=== PATIENT | female | born 1980 | race Caucasian/White ===

== ENCOUNTER 2016-12-09 17:23 | Emergency (ER) | payer OTHER ==
[2016-12-09 18:16] VITALS: BP 109/64
--- NOTE | 2016-12-09 18:20 | UC ---
FLU HPI - HPI Summary HPI Summary: day 2 of fevers, chills, body aches, fatigue and cough - History of Current Complaint Chief Complaint: UCRespiratory Stated Complaint: CHEST CONGESTION Time Seen by Provider: 12/09/16 18:19 Hx Obtained From: Patient Hx Last Menstrual Period: 11/27/16 ?: No Onset/Duration: Sudden Onset, Lasting Days - 2, Still Present Severity Currently: Moderate Severity Initially: Moderate Pain Intensity: 8 Pain Scale Used: 0-10 Numeric Associated Signs & Symptoms: Positive: Fever, Myalgia, Cough, Headache Related Hx: Possible Flu/Infectious Exposure - Allergy/Home Medications Allergies/Adverse Reactions: Allergies Allergy/AdvReac Type Severity Reaction Status Date / Time Penicillins Allergy Intermediate Rash Verified 04/26/16 16:27 Home Medications: Home Medications [id number] [Excedrin Extra Strength 250-250-65 mg] 1 tab PO 12/09/16 [History] PMH/Surg Hx/FS Hx/Imm Hx Previously Healthy: No - IGIUGIG Endocrine History Of: Denies: Diabetes, Thyroid Disease Cardiovascular History Of: Reports: 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 Respiratory History Of: Reports: Asthma - Surgical History Surgical History: Yes Surgery Procedure, Year, and Place: open heart surgery as (VSD REPAIR) - Family History Known Family History: Positive: None Family History: no cardiovascular issues reported in family - Social History Occupation: Employed Full-time Lives: With Family Alcohol Use: None Substance Use Type: None Smoking Status (MU): Light Every Day Tobacco Smoker Type: Cigarettes Amount Used/How Often: less than 1/2 pack day Length of Time of Smoking/Using Tobacco: 18 Years Have You Smoked in the Last Year: Yes Household Exposure Type: Cigarettes Cessation Counseling: Patient Advised to Stop - Immunization History Most Recent Influenza Vaccination: fall 2012 Most Recent Tetanus Shot: [facility] offering [facility] Most Recent Pneumonia Vaccination: never Review of Systems Constitutional: Fever, Chills, Fatigue Skin: Negative Eyes: Negative ENT: Negative Respiratory: Cough Cardiovascular: Negative Gastrointestinal: Negative Genitourinary: Negative Motor: Negative Neurovascular: Negative Musculoskeletal: Arthralgia, Myalgia Neurological: Headache Psychological: Negative All Other Systems Reviewed And Are Negative: Yes Physical Exam Triage Information Reviewed: Yes Appearance: Well-Nourished, Ill-Appearing - moderate, Pain Distress - moderate Vital Signs: Initial Vital Signs Temp 101.1 F 12/09/16 18:13 Pulse 93 12/09/16 18:13 Resp 18 12/09/16 18:13 BP 109/64 12/09/16 18:13 Pulse Ox 99 12/09/16 18:13 Vital Signs Reviewed: Yes Eye Exam: Normal Eyes: Positive: Conjunctiva Clear ENT Exam: Normal ENT: Positive: Normal ENT inspection, Hearing grossly normal, Pharynx normal, TMs normal. Negative: Nasal congestion, Nasal drainage, Tonsillar swelling, Tonsillar exudate, Trismus, Muffled/hoarse voice Dental Exam: Normal Neck exam: Normal Neck: Positive: Supple, Nontender, No Lymphadenopathy Respiratory Exam: Normal Respiratory: Positive: Chest non-tender, Lungs clear, Normal breath sounds, No respiratory distress, No accessory muscle use Cardiovascular Exam: Normal Cardiovascular: Positive: RRR, No Murmur, Pulses Normal, Brisk Capillary Refill Abdominal Exam: Normal Abdomen Description: Positive: Nontender, No Organomegaly, Soft Bowel Sounds: Positive: Present Musculoskeletal Exam: Normal Musculoskeletal: Positive: Strength Intact, ROM Intact, No Edema Neurological Exam: Normal Neurological: Positive: Alert, Muscle Tone Normal Psychological Exam: Normal Psychological: Positive: Normal Response To Family Skin Exam: Normal Diagnostics - Laboratory Diagnostic Studies Completed/Ordered: Influenza A (+) Flu Course/Dx - Course Course Of Treatment: tamiflu, rest, tylenol, ibuprofen, increase fluids, follow with pcp - Differential Dx/Diagnosis Differential Diagnosis/HQI/PQRI: Influenza, Pneumonia, Upper Respiratory Infection Provider Diagnoses: Influenza A Discharge - Discharge Plan Condition: Stable Disposition: HOME Prescriptions: Oseltamivir CAP* [Tamiflu CAP*] 75 mg PO BID #10 cap Patient Education Materials: Albuterol (By breathing), How to Use a Metered- Dose Inhaler (ED), Influenza (ED), Wheezing (ED) Forms: *Work Release Referrals: Idalia Cai MD [Primary Care Provider] - 3 Days
[2016-12-09] MEDS ORDERED: Ibuprofen TAB* 600 MG PO ONE (18:40)
== END 2016-12-09 19:04 | disposition home or self-care (01) ==
LOC: UCEAST 17:23
DX: J10.1 Influenza due to other identified influenza virus with other respiratory manifestations (principal); Z88.0 Allergy status to penicillin; F17.210 Nicotine dependence, cigarettes, uncomplicated
CPT/HCPCS: 87502; 99212; A9270-GY; G0463

== ENCOUNTER 2017-03-16 07:50 | Emergency (ER) | payer MEDICAID ==
[2017-03-16 08:09] VITALS: BP 107/64
[2017-03-16] MEDS ORDERED: Polymyx/Trimethoprim OPTH* 10 ML BTL RIGHT EYE ONE (08:35)
--- NOTE | 2017-03-16 08:36 | UC ---
Eye Complaint HPI - HPI Summary HPI Summary: right upper eye lid swollen and tender began this morning - History of Current Complaint Chief Complaint: UCEye Stated Complaint: EYE ISSUE Time Seen by Provider: 03/16/17 08:30 Hx Obtained From: Patient Hx Last Menstrual Period: 03/13/17 ?: No Onset/Duration: Sudden Onset, Lasting Hours - 2, Still Present Timing: Constant Severity Initially: Mild Severity Currently: Mild Pain Intensity: 2 Pain Scale Used: 0-10 Numeric Location of Injury: Eye Lid (upper) Aggravating Factor(s): Nothing Alleviating Factor(s): Nothing Associated Signs And Symptoms: Positive: Negative Related History: Similar Episode - Allergies/Home Medications Allergies/Adverse Reactions: Allergies Allergy/AdvReac Type Severity Reaction Status Date / Time Penicillins Allergy Intermediate Rash Verified 04/26/16 16:27 PMH/Surg Hx/FS Hx/Imm Hx Previously Healthy: No Endocrine History Of: Denies: Diabetes, Thyroid Disease Cardiovascular History Of: Reports: 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 Respiratory History Of: Reports: Asthma - Surgical History Surgical History: Yes Surgery Procedure, Year, and Place: 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) - Family History Known Family History: Positive: None Family History: no cardiovascular issues reported in family - Social History Occupation: Employed Full-time Lives: With Family Alcohol Use: Rare Substance Use Type: None Smoking Status (MU): Light Every Day Tobacco Smoker Type: Cigarettes Amount Used/How Often: less than 1/2 pack day Length of Time of Smoking/Using Tobacco: 18 Years Have You Smoked in the Last Year: Yes Household Exposure Type: Cigarettes - Immunization History Most Recent Influenza Vaccination: fall 2012 Most Recent Tetanus Shot: [facility] offering [facility] Most Recent Pneumonia Vaccination: never Review of Systems Constitutional: Negative Skin: Negative Eyes: Negative - lid swollen and tender, Other ENT: Negative Respiratory: Negative Cardiovascular: Negative Gastrointestinal: Negative Genitourinary: Negative Motor: Negative Neurovascular: Negative Musculoskeletal: Negative Neurological: Negative Psychological: Negative All Other Systems Reviewed And Are Negative: Yes Physical Exam Triage Information Reviewed: Yes Appearance: Well-Appearing, No Pain Distress, Well-Nourished Vital Signs: Initial Vital Signs Temp 97.6 F 03/16/17 07:52 Pulse 64 03/16/17 07:52 Resp 18 03/16/17 07:52 BP 107/64 03/16/17 07:52 Pulse Ox 100 03/16/17 07:52 Vital Signs Reviewed: Yes Eye Exam: Normal Eyes: Positive: Conjunctiva Clear ENT Exam: Normal ENT: Positive: Normal ENT inspection, Hearing grossly normal, Pharynx normal, TMs normal. Negative: Nasal congestion, Nasal drainage, Tonsillar swelling, Tonsillar exudate, Trismus, Muffled/hoarse voice Dental Exam: Normal Neck exam: Normal Neck: Positive: Supple, Nontender, No Lymphadenopathy Respiratory Exam: Normal Respiratory: Positive: Chest non-tender, No respiratory distress, No accessory muscle use Cardiovascular Exam: Normal Cardiovascular: Positive: RRR, Pulses Normal, Brisk Capillary Refill Abdominal Exam: Normal Musculoskeletal Exam: Normal Musculoskeletal: Positive: Strength Intact, ROM Intact, No Edema Neurological Exam: Normal Neurological: Positive: Alert, Muscle Tone Normal Psychological Exam: Normal Skin Exam: Normal Eye Complaint Course/Dx - Course Course Of Treatment: warm compress, polytrim drops, follow with pcp prn - Differential Dx/Diagnosis Differential Diagnosis/HQI/PQRI: Conjunctivitis, Periorbital Cellulitis, Orbital Cellulitis Provider Diagnoses: OD Stye Discharge - Discharge Plan Condition: Stable Disposition: HOME Patient Education Materials: Stye (ED), Warm Compress or Soak (ED) Referrals: Andria Powell MD [Medical Doctor] - If Needed
== END 2017-03-16 09:03 | disposition home or self-care (01) ==
LOC: UCEAST 07:50
DX: H00.011 Hordeolum externum right upper eyelid (principal); F17.210 Nicotine dependence, cigarettes, uncomplicated
CPT/HCPCS: 99212; G0463

== ENCOUNTER 2017-03-30 12:25 | Emergency (ER) | payer MEDICAID ==
--- NOTE | 2017-03-30 12:35 | UC ---
Back Pain HPI - HPI Summary HPI Summary: The patient comes in today for: 1. Lower back pain: Onset: 2 days ago. Palliative/provocative: Ibuprofen helps. Movement makes it worse. Quality: Pressure. Region: Lower back Severity: 5/10 Time: Constant Associated symptoms: Event: She moved some furniture Monday after work. Previous treatment: Advil/ibuprofen recently, and hydrocodone in the past. Previous problem: She states that she has a history of lower back pain for about 2 years. Infections/fever: None. Cancers/unexpected weight loss: None. She lays on her right side and it helps. Bowel/bladder control problems: none. Weakness/numbness: Not present. Spasm/stiffness: Present. * - History of Current Complaint Stated Complaint: BACK PAIN EYE ISSUE Time Seen by Provider: 03/30/17 12:30 Hx Obtained From: Patient Hx Last Menstrual Period: 11/27/16 ?: No - Allergies/Home Medications Allergies/Adverse Reactions: Allergies Allergy/AdvReac Type Severity Reaction Status Date / Time Penicillins Allergy Intermediate Rash Verified 03/30/17 12:50 Home Medications: Home Medications NK [No Home Medications Reported] 03/30/17 [History Confirmed 03/30/17] PMH/Surg Hx/FS Hx/Imm Hx Previously Healthy: No - lower back pain Cardiovascular History: Cardiac Disease - Opoen heart surgery when a baby." - Surgical History Surgical History: Yes Surgery Procedure, Year, and Place: open heart surgery as (VSD REPAIR) - Family History Known Family History: Positive: Cardiac Disease, Hypertension Family History: no cardiovascular issues reported in family - Social History Occupation: Employed Full-time Alcohol Use: None Substance Use Type: None Smoking Status (MU): Light Every Day Tobacco Smoker Type: Cigarettes Amount Used/How Often: less than 1/2 pack day Length of Time of Smoking/Using Tobacco: 18 Years Have You Smoked in the Last Year: Yes Household Exposure Type: Cigarettes - Immunization History Most Recent Influenza Vaccination: fall 2012 Most Recent Tetanus Shot: [facility] offering [facility] Most Recent Pneumonia Vaccination: never Review of Systems Constitutional: Negative Skin: Negative Eyes: Negative ENT: Negative Respiratory: Negative Cardiovascular: Negative Gastrointestinal: Negative Genitourinary: Negative Musculoskeletal: Arthralgia All Other Systems Reviewed And Are Negative: Yes Physical Exam Triage Information Reviewed: Yes Appearance: Thin, Other: - She moves slowly, and guarded, but she is able to get onto the exam table by herself. Vital Signs Reviewed: Yes Eyes: Positive: Conjunctiva Clear, Other: - She has a red, and yellow mass about 4 mm in diameter associated with the right upper eye lid at the margin. There is no erythema of the undersurface of the eye lid. There is no discharge.. Negative: Discharge ENT: Positive: Hearing grossly normal - But she has bilateral hearing aids.. Negative: Pharyngeal erythema, Nasal congestion, Nasal drainage, TM bulging, TM dull, TM red, Tonsillar swelling, Tonsillar exudate Dental: Negative: Gross Decay/Caries @, Dental Fracture @ Neck: Positive: Supple, Nontender, No Lymphadenopathy. Negative: Nuchal Rigidity Respiratory: Positive: Lungs clear, No respiratory distress, No accessory muscle use. Negative: Rhonchi, Wheezing Cardiovascular: Positive: RRR, No Murmur Abdomen Description: Positive: Nontender, No Organomegaly, Soft. Negative: Distended, Guarding Musculoskeletal: Positive: Other: - Back: There is tenderness to palpation of the right paraspinal lumbar musculature. There is no CVA tenderness. There is no SLR bilaterally and the DTP (patellar and Achilles) 2+/2 x 2. Neurological: Positive: Alert, Muscle Tone Normal Psychological: Positive: Age Appropriate Behavior, Consolable Skin: Negative: rashes, breakdown Back Pain Course/Dx - Course Course Of Treatment: Patient was told that she had a lower back muscular strain and her treatment plan (NSAIDS and muscle relaxers) were suggested to which she agreed. - Differential Dx/Diagnosis Provider Diagnoses: Lower back pain/strain. Right upper eye lid stye Discharge - Discharge Plan Condition: Stable Disposition: HOME Patient Education Materials: Low Back Strain (ED), Stye (ED) Forms: *Work Release Referrals: Idalia Cai MD [Primary Care Provider] -
[2017-03-30 12:49] VITALS: BP 103/65
== END 2017-03-30 13:10 | disposition home or self-care (01) ==
LOC: UCCORT 12:25
DX: S39.012A Strain of muscle, fascia and tendon of lower back, initial encounter (principal); X50.9XXA Other and unspecified overexertion or strenuous movements or postures, initial encounter; Y93.89 Activity, other specified; Y92.9 Unspecified place or not applicable; H00.011 Hordeolum externum right upper eyelid; Z88.0 Allergy status to penicillin; F17.210 Nicotine dependence, cigarettes, uncomplicated
CPT/HCPCS: 99212; G0463

== ENCOUNTER 2017-11-12 10:13 | Emergency (ER) | payer OTHER ==
[2017-11-12 10:22] VITALS: BP 106/61
--- NOTE | 2017-11-12 13:25 | UC ---
Pj Groves Stephanie, scribed for Chase Bonilla MD on 11/12/17 at 1252 . Eye Complaint HPI - HPI Summary HPI Summary: The pt is a 37 y/o F presenting to with stye in the R eye that began yesterday 11/11/17. Symptoms include chest congestion, and productive cough with green mucus. Pt denies ear pain, runny nose, sore throat and fever. - History of Current Complaint Chief Complaint: UCEye Stated Complaint: EYE ISSUE Time Seen by Provider: 11/12/17 12:25 Hx Obtained From: Patient Hx Last Menstrual Period: 11/07/17 ?: No Onset/Duration: Lasting Days - 1, Still Present Timing: Constant Pain Intensity: 0 Pain Scale Used: 0-10 Numeric Location of Injury: Eye Lid (lower) - R Aggravating Factor(s): Nothing Alleviating Factor(s): Nothing Associated Signs And Symptoms: Positive: Swelling - lower eye lid - Allergies/Home Medications Allergies/Adverse Reactions: Allergies Allergy/AdvReac Type Severity Reaction Status Date / Time Penicillins Allergy Intermediate Rash Verified 11/12/17 10:18 Home Medications: Home Medications Naproxen [Naproxen 500 mg] 500 mg PO TID 11/12/17 [History Confirmed 11/12/17] PMH/Surg Hx/FS Hx/Imm Hx Cardiovascular History: Other - Neg: HTN Other Cardiovascular History: Neg: HTN - Surgical History Surgical History: Yes Surgery Procedure, Year, and Place: open heart surgery as (VSD REPAIR) - Family History Known Family History: Positive: Cardiac Disease, Hypertension Family History: cancer, but pt doens't recall what type - Social History Occupation: Employed Part-time Lives: With Family - daughter Alcohol Use: Rare Substance Use Type: None Smoking Status (MU): Light Every Day Tobacco Smoker Type: Cigarettes Amount Used/How Often: less than 1/2 pack day Length of Time of Smoking/Using Tobacco: 18 Years Have You Smoked in the Last Year: Yes Household Exposure Type: Cigarettes - Immunization History Most Recent Influenza Vaccination: Not UTD Most Recent Tetanus Shot: [facility]k offering [facility] Most Recent Pneumonia Vaccination: never Review of Systems Constitutional: Negative Skin: Negative Eyes: Negative ENT: Negative Respiratory: Cough - productive Cardiovascular: Other - chest congestion Gastrointestinal: Negative Genitourinary: Negative Motor: Negative Neurovascular: Negative Musculoskeletal: Negative Neurological: Negative Psychological: Negative All Other Systems Reviewed And Are Negative: Yes Physical Exam Triage Information Reviewed: Yes Vital Signs: Initial Vital Signs Temp 98 F 11/12/17 10:19 Pulse 70 11/12/17 10:19 Resp 15 11/12/17 10:19 BP 106/61 11/12/17 10:19 Pulse Ox 100 11/12/17 10:19 Vital Signs Reviewed: Yes - Additional Comments General: well-appearing, no pain distress Skin: warm, color reflects adequate perfusion, dry Head: normal Eyes: EOMI, SCOTT, swelling lower eyelid laterally. ENT: Rhinorrhea Neck: supple, nontender Respiratory: ronchi in lungs, breath sounds present Cardiovascular: RRR Abdomen: soft, nontender Bowel: present Musculoskeletal: normal, strength/ROM intact Neurological: normal, sensory/motor intact, A&O x3 Psychological: affect/mood appropriate Eye Complaint Course/Dx - Course Course Of Treatment: Medications reviewed. - Differential Dx/Diagnosis Provider Diagnoses: RIGHT LOWER EYELID STYE, BRONCHITIS Discharge - Discharge Plan Condition: Stable Disposition: HOME Prescriptions: Azithromycin TAB* [Zithromax TAB (Z-NAOMI) 250 mg #6 tabs] 2 tab PO .TODAY, THEN 1 DAILY #1 naomi Tobramycin 0.3% OPHTH.IGNACIO* 1 drop RIGHT EYE Q4H #1 btl Patient Education Materials: Stye (ED), Acute Bronchitis (ED) Referrals: Idalia Cai MD [Primary Care Provider] - Additional Instructions: FOLLOW UP WITH YOUR DOCTOR. GET RECHECKED FOR ANY WORSENING OF YOUR CONDITION OR QUESTIONS OR CONCERNS. The documentation as recorded by the Pj liriano Stephanie accurately reflects the service I personally performed and the decisions made by me, Chase Bonilla MD.
== END 2017-11-12 12:42 | disposition home or self-care (01) ==
LOC: UCEAST 10:13
DX: H00.022 Hordeolum internum right lower eyelid (principal); J40 Bronchitis, not specified as acute or chronic; Z88.0 Allergy status to penicillin; F17.210 Nicotine dependence, cigarettes, uncomplicated
CPT/HCPCS: 99212; G0463

== ENCOUNTER 2017-12-09 16:04 | Emergency (ER) | payer OTHER ==
[2017-12-09 17:05] VITALS: BP 103/64
--- NOTE | 2017-12-09 18:20 | UC ---
Yasmeen Groves Gabriel, scribed for Thiago Mchugh MD on 12/09/17 at 1721 . FLU HPI - HPI Summary HPI Summary: This patient is a 37 year old F presenting to [facility] [place] accompanied by her family with a chief complaint of influenza like illness. The patient rates the pain 7/ 10 in severity. Patient reports cough, myalgia, and chills. Patient denies ear pain. - History of Current Complaint Chief Complaint: UCRespiratory Stated Complaint: BODY ACHES, COUGH Time Seen by Provider: 12/09/17 16:52 Hx Obtained From: Patient Hx Last Menstrual Period: 12/01/17 Onset/Duration: Still Present Severity Currently: Moderate Severity Initially: Moderate Pain Intensity: 7 Pain Scale Used: 0-10 Numeric Associated Signs & Symptoms: Positive: Fever, F/C, Myalgia, Cough - Allergy/Home Medications Allergies/Adverse Reactions: Allergies Allergy/AdvReac Type Severity Reaction Status Date / Time MS Penicillins [Penicillins] Allergy Intermediate Rash Verified 11/12/17 10:18 Home Medications: Home Medications Naproxen [Naprosyn] 500 mg PO 12/09/17 [History] PMH/Surg Hx/FS Hx/Imm Hx Cardiovascular History: Other Other Cardiovascular History: murmur - Surgical History Surgical History: Yes Surgery Procedure, Year, and Place: 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) - Family History Known Family History: Positive: Cardiac Disease, Hypertension Negative: Diabetes, Renal Disease, Respiratory Disease, Seizure Disorder Family History: cancer, but pt doens't recall what type - Social History Alcohol Use: Rare Substance Use Type: None Smoking Status (MU): Light Every Day Tobacco Smoker Type: Cigarettes Amount Used/How Often: less than 1/2 pack day Length of Time of Smoking/Using Tobacco: 18 Years Have You Smoked in the Last Year: Yes Household Exposure Type: Cigarettes - Immunization History Most Recent Influenza Vaccination: Not UTD Most Recent Tetanus Shot: unk offering post Most Recent Pneumonia Vaccination: never Review of Systems Constitutional: Fever, Chills Respiratory: Cough Musculoskeletal: Myalgia All Other Systems Reviewed And Are Negative: Yes Physical Exam Triage Information Reviewed: Yes Vital Signs: Initial Vital Signs Temp 100.7 F 12/09/17 16:57 Pulse 84 12/09/17 16:57 Resp 16 12/09/17 16:57 BP 103/64 12/09/17 16:57 Pulse Ox 97 12/09/17 16:57 Vital Signs Reviewed: Yes - Additional Comments VITAL SIGNS: Reviewed. GENERAL: Patient is a well developed and nourished F who is lying comfortable in the stretcher. Patient is not in any acute respiratory distress. HEAD AND FACE: Normocephalic EYES: PERRLA, EOMI x 2. EARS: Hearing grossly intact. MOUTH: Oropharynx within normal limits. NECK: Supple, trachea is midline, no adenopathy, no JVD, no carotid bruit. CHEST: Symmetric, no tenderness at palpation LUNGS: Clear to auscultation bilaterally. No wheezing or crackles. CVS: Regular rate and rhythm, S1 and S2 present, no murmurs or gallops appreciated. ABDOMEN: Soft, non-tender. Bowel sounds are normal. No abdominal abnormal pulsations. EXTREMITIES: Full ROM in all major joints, no edema, no cyanosis or clubbing. NEURO: Alert and oriented x 3. No acute neurological deficits. Speech is normal and follows commands. SKIN: Dry and warm Flu Course/Dx - Course Course Of Treatment: Two of the family members have the flu and she is presenting a similar maner. Therefore I will treat her with Tamiflu even though the swab was negative. I discussed all the findings and test results with the patient. Pt was instructed to return to the urgent care or go to ER immediately if any of the symptoms return or worsens. Plan of care was discussed with the patient and pt understands and agrees. All questions were answered to patient satisfaction. There were no further complaints or concerns. - Differential Dx/Diagnosis Differential Diagnosis/HQI/PQRI: Bronchitis, Influenza, Pneumonia, Upper Respiratory Infection Provider Diagnoses: Upper respiratory infection. Influenza Discharge - Discharge Plan Condition: Stable Disposition: HOME Prescriptions: Oseltamivir CAP* [Tamiflu CAP*] 75 mg PO BID #10 cap Patient Education Materials: Upper Respiratory Infection (ED) Referrals: Idalia Cai MD [Primary Care Provider] - The documentation as recorded by the Yasmeen liriano Gabriel accurately reflects the service I personally performed and the decisions made by me, Thiago Mchugh MD.
== END 2017-12-09 19:14 | disposition home or self-care (01) ==
LOC: UCEAST 16:04
DX: J11.1 Influenza due to unidentified influenza virus with other respiratory manifestations (principal); F17.210 Nicotine dependence, cigarettes, uncomplicated
CPT/HCPCS: 87502; 87651; 99212; G0463

== ENCOUNTER 2018-02-06 09:03 | Emergency (ER) | payer OTHER ==
[2018-02-06 11:13] VITALS: BP 123/75
--- NOTE | 2018-02-06 12:00 | UC ---
Shortness of Breath HPI - HPI Summary HPI Summary: 38 y/o female with no PMH, no medication, no current ABX use c/o ~ 3 days of fever (tactile), chills, SOB, wheezing, nasal congestions, clogged ears, productive cough. 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 took mucinex, no help. no ill contacts, - History of Current Complaint Chief Complaint: UCRespiratory Stated Complaint: COUGH,CONGESTED Time Seen by Provider: 02/06/18 11:45 Hx Obtained From: Patient Hx Last Menstrual Period: 12/01/17 ?: No Onset/Duration: Sudden Onset Current Severity: None Associated Signs & Symptoms: Positive: Cough (Nonproductive), Wheezing, Fever, Chills, Nasal Congestion - Allergy/Home Medications Allergies/Adverse Reactions: Allergies Allergy/AdvReac Type Severity Reaction Status Date / Time Penicillins Allergy Rash Verified 02/06/18 11:13 PMH/Surg Hx/FS Hx/Imm Hx Previously Healthy: Yes - + TOB use - Surgical History Surgical History: Yes Surgery Procedure, Year, and Place: 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) - Family History Known Family History: Positive: Cardiac Disease, Hypertension Negative: Diabetes, Renal Disease, Respiratory Disease, Seizure Disorder Family History: cancer, but pt doens't recall what type - Social History Alcohol Use: Rare Substance Use Type: None Smoking Status (MU): Light Every Day Tobacco Smoker Type: Cigarettes Amount Used/How Often: less than 1/2 pack day Length of Time of Smoking/Using Tobacco: 18 Years Have You Smoked in the Last Year: Yes Household Exposure Type: Cigarettes - Immunization History Most Recent Influenza Vaccination: Not UTD Most Recent Tetanus Shot: unk offering post Most Recent Pneumonia Vaccination: never Review of Systems Constitutional: Fever, Chills, Fatigue ENT: Ear Ache, Nasal Discharge, Sinus Congestion Respiratory: Shortness Of Breath, Cough Gastrointestinal: Negative Genitourinary: Negative Motor: Negative Neurovascular: Negative Musculoskeletal: Negative, Arthralgia Neurological: Negative Psychological: Negative Is Patient Immunocompromised?: No All Other Systems Reviewed And Are Negative: Yes Physical Exam Triage Information Reviewed: Yes Appearance: No Pain Distress, Well-Nourished, Ill-Appearing - mild Vital Signs: Initial Vital Signs Temp 97.4 F 02/06/18 11:10 Pulse 72 02/06/18 11:10 Resp 18 02/06/18 11:10 BP 123/75 02/06/18 11:10 Pulse Ox 99 02/06/18 11:10 Vital Signs Reviewed: Yes Eyes: Positive: Conjunctiva Clear ENT: Positive: Pharyngeal erythema - minimal , no exudates, Nasal congestion, TM dull - right ear with ? plastic in ear canal, TM red, Sinus tenderness, Uvula midline. Negative: Tonsillar swelling, Tonsillar exudate Neck: Positive: Supple, Nontender, No Lymphadenopathy Respiratory: Positive: Normal breath sounds, No respiratory distress, No accessory muscle use, Crackles, Rhonchi - Right Lower lobe Cardiovascular: Positive: RRR, No Murmur, Pulses Normal Abdomen Description: Positive: Nontender, No Organomegaly, Soft. Negative: CVA Tenderness (R), CVA Tenderness (L) Neurological Exam: Normal Skin Exam: Normal Discharge - Discharge Plan Referrals: Idalia Cia MD [Primary Care Provider] -
--- NOTE | 2018-02-06 12:17 | RAD ---
INDICATION: Short of breath COMPARISON: August 22, 2017 TECHNIQUE: PA and lateral dual-energy views were obtained. FINDINGS: Bones/Soft Tissues: There are no acute bony findings. Cardiomediastinal: The cardiomediastinal silhouette is normal. Lungs: There are no infiltrates. Pleura: There are no pleural effusions. Other: None IMPRESSION: NO ACTIVE DISEASE
== END 2018-02-06 12:54 | disposition home or self-care (01) ==
LOC: UCEAST 09:03
DX: R50.9 Fever, unspecified (principal); R05 Cough; R09.81 Nasal congestion; R53.83 Other fatigue; H92.09 Otalgia, unspecified ear; R06.02 Shortness of breath; Z88.0 Allergy status to penicillin; F17.210 Nicotine dependence, cigarettes, uncomplicated
CPT/HCPCS: 71046; 99212; G0463

== ENCOUNTER 2018-07-09 16:55 | Emergency (ER) | payer OTHER ==
[2018-07-09 18:48] VITALS: BP 117/74
--- NOTE | 2018-07-09 19:05 | UC ---
Respiratory Complaint HPI - HPI Summary HPI Summary: A 38 y/o female accompanied by her son presents to [facility] c/o chest congestion. According to the patient, she has been experiencing chest congestion coupled with wheezing since this AM. She denies any fever, chills, ear pain or sinus pain. Patient stated that she has a history of asthma and does use an inhaler, however, she needs a new prescription as she has not taken it in some time. She stated that she needed an inhaler last night, but had matti to use. Patient is a frequent smoker, but is in the process of quitting. SHx of rare ETOH, no recreational drugs. PMMx of open heart surgery. No allergies. Patient works for [employer] (just started). Patient has been on Prednisone in the past had no issues with it. Pt's medications reviewed this visit. - History of Current Complaint Chief Complaint: UCRespiratory Stated Complaint: CONGESTED Time Seen by Provider: 07/09/18 19:02 Hx Obtained From: Patient Hx Last Menstrual Period: 1 WEEK AGO Onset/Duration: Sudden Onset, Lasting Hours, Still Present Severity Currently: None Pain Intensity: 0 Pain Scale Used: 0-10 Numeric Aggravating Factors: Nothing Alleviating Factors: Nothing Associated Signs And Symptoms: Positive: Wheezing. Negative: Fever, Chills - Allergies/Home Medications Allergies/Adverse Reactions: Allergies Allergy/AdvReac Type Severity Reaction Status Date / Time Penicillins Allergy Rash Verified 07/09/18 18:48 PMH/Surg Hx/FS Hx/Imm Hx Previously Healthy: Yes Respiratory History: COPD - NEGATIVE, Asthma - Surgical History Surgical History: Yes Surgery Procedure, Year, and Place: open heart surgery as (VSD REPAIR) - Family History Known Family History: Positive: Cardiac Disease, Hypertension Negative: Diabetes, Renal Disease, Respiratory Disease, Seizure Disorder Family History: cancer, but pt doens't recall what type - Social History Alcohol Use: Occasionally Substance Use Type: None Smoking Status (MU): Current Every Day Smoker Type: Cigarettes - In process of quitting. Amount Used/How Often: less than 1/2 pack day Length of Time of Smoking/Using Tobacco: 18 Years Have You Smoked in the Last Year: Yes Household Exposure Type: Cigarettes - Immunization History Most Recent Influenza Vaccination: Not UTD Most Recent Tetanus Shot: unk offering post Most Recent Pneumonia Vaccination: never Review of Systems Constitutional: Negative Skin: Negative Eyes: Negative ENT: Negative Respiratory: Cough, Other - WHEEZING Cardiovascular: Other Gastrointestinal: Negative Genitourinary: Negative Motor: Negative Neurovascular: Negative Musculoskeletal: Negative Neurological: Negative Psychological: Negative Is Patient Immunocompromised?: No All Other Systems Reviewed And Are Negative: Yes Physical Exam - Summary Physical Exam Summary: Vital Signs Reviewed: Yes A+Ox3, no distress Eyes: Conjunctiva Clear, SCOTT. EOM intact and full ENT: Hearing grossly normal TM x 2 clear, mmoist, uvula midline, no exudate, no erythema Neck: Positive: Supple Respiratory: Positive: coarse cough, scattered wheeze, no accessory muscle +BS throughout no retractions Cardiovascular: RRR nl s1, s2 no m/r CBT <2 sec abd soft + BS nt/nd no guarding, no distension Musculoskeletal Exam: WALSH x 4 without difficulty Strength Intact, ROM Intact Neurological: Positive: Alert, + sensation throughout Psychological: Positive: Normal Response To Family Skin: Positive: no rash, no ecchymosis Triage Information Reviewed: Yes Vital Signs: Initial Vital Signs Temp 98 F 07/09/18 18:45 Pulse 83 07/09/18 18:45 Resp 16 07/09/18 18:45 BP 117/74 07/09/18 18:45 Pulse Ox 98 07/09/18 18:45 Vital Signs Reviewed: Yes UC Diagnostic Evaluation - Laboratory O2 Sat by Pulse Oximetry: 98 Respiratory Course/Dx - Course Course Of Treatment: Pt with progressive cough, wheeze and congestion. Pt with a h/o asthma - out of MDI. children on abx for head congestion. + tobacco use. Will Rx abx, mdi, pred. secretion precaution. return precaution. pt in agreement with plan - Differential Dx/Diagnosis Provider Diagnoses: acute bronchitis Discharge - Sign-Out/Discharge Documenting (check all that apply): Patient Departure - DISCHARGE All imaging exams completed and their final reports reviewed: No Studies - Discharge Plan Condition: Stable Disposition: HOME Prescriptions: Albuterol HFA INHALER* [Ventolin HFA Inhaler*] 1 - 2 puff INH Q4H PRN #1 mdi PRN Reason: wheeze Azithromycin TAB* [Zithromax TAB (Z-NAOMI) 250 mg #6 tabs] 2 tab PO .TODAY, THEN 1 DAILY #1 naomi Fluconazole [Diflucan 150 MG (NF)] 150 mg PO ONCE PRN #1 tab PRN Reason: vaginal yeast infection predniSONE TAB* [Deltasone TAB*] 50 mg PO DAILY #5 tab Patient Education Materials: Acute Bronchitis (ED) Referrals: Idalia Cai MD [Primary Care Provider] - Additional Instructions: - Stay well hydrated. Drink plenty of non-alcoholic, non-caffinated beverages. - Alternate ibuprofen (Advil, Motrin) 600mg and Tylenol every 3 hours for pain or fever. Take with food. Do NOT take for more than 4-5 days. - These infections are spread by secretions - do NOT share eating or drinking utensils - clean items you share with other people such as cell phones, computer mouse, TV remote, computer tablets,etc. after you have been on antibiotics for 2 days, change your toothbrush and your pillowcase. - take antibiotics as prescribed until gone - use you inhaler - 2 puffs every 4 hours today and tomorrow, then every 4hours as needed - take prednisone daily as prescribed until gone - get plenty of restful sleep - humidify the air in the room where you sleep - boil water, run a hot steam shower, vaporizer, cups of water by heat register - okay to take over the counter decongestant and cough medication - work to decrease cigarette smoking -you have been given the 1 time dose for a yeast infection - okay to use a needed at the end of your antibiotic course - contact your doctor or return with questions or concerns - Billing Disposition and Condition Condition: STABLE Disposition: Home - Attestation Statements Document Initiated by Johnathan: Yes Documenting Scribe: Stevan Lutz Provider For Whom Johnathan is Documenting (Include Credential): Rosalina aPul MD Scribe Attestation: Stevan Groves, scribed for Rosalina Paul MD on 07/11/18 at 1256. Scribe Documentation Reviewed: Yes Provider Attestation: The documentation as recorded by the Stevan liraino accurately reflects the service I personally performed and the decisions made by me, Rosalina Paul MD
== END 2018-07-09 19:49 | disposition home or self-care (01) ==
LOC: UCEAST 16:55
CPT/HCPCS: 99212; G0463

== ENCOUNTER 2018-10-29 14:34 | Emergency (ER) | payer OTHER ==
[2018-10-29 14:57] VITALS: BP 114/65
--- NOTE | 2018-10-29 14:57 | UC ---
Respiratory Complaint HPI - HPI Summary HPI Summary: 38 yo female presents with sinus congestion and frontal headache with productive cough over the last 3 weeks. She has not taken anything OTC for her symptoms. She denies fever, chills, SOB, chest pain. She is still smoking daily. - History of Current Complaint Stated Complaint: COUGH,CONGESTION Time Seen by Provider: 10/29/18 14:52 Hx Obtained From: Patient Hx Last Menstrual Period: 1 WEEK AGO Onset/Duration: Gradual Onset Timing: Constant Severity Initially: Mild Severity Currently: Mild Pain Intensity: 2 Pain Scale Used: 0-10 Numeric Character: Cough: Productive - Allergies/Home Medications Allergies/Adverse Reactions: Allergies Allergy/AdvReac Type Severity Reaction Status Date / Time Penicillins Allergy Rash Verified 07/09/18 18:48 PMH/Surg Hx/FS Hx/Imm Hx - Additional Past Medical History Additional PMH: None - Surgical History Surgical History: Yes Surgery Procedure, Year, and Place: open heart surgery as (VSD REPAIR) - Family History Known Family History: Positive: Cardiac Disease, Hypertension Negative: Diabetes, Renal Disease, Respiratory Disease, Seizure Disorder Family History: cancer, but pt doens't recall what type - Social History Occupation: Employed Full-time Lives: With Family Alcohol Use: Occasionally Substance Use Type: None Smoking Status (MU): Current Every Day Smoker Type: Cigarettes Amount Used/How Often: less than 1/2 pack day Length of Time of Smoking/Using Tobacco: 18 Years Have You Smoked in the Last Year: Yes Household Exposure Type: Cigarettes - Immunization History Most Recent Influenza Vaccination: Not UTD Most Recent Tetanus Shot: unk offering post Most Recent Pneumonia Vaccination: never Review of Systems All Other Systems Reviewed And Are Negative: Yes Constitutional: Positive: Negative Skin: Positive: Negative Eyes: Positive: Negative ENT: Positive: Negative Respiratory: Positive: Cough Cardiovascular: Positive: Negative Gastrointestinal: Positive: Negative Neurovascular: Positive: Negative Neurological: Positive: Negative Psychological: Positive: Negative Physical Exam - Summary Physical Exam Summary: GENERAL: NAD. WDWN. No pain distress. SKIN: No rashes, sores, lesions, or open wounds. HEENT: Head: AT/NC Eyes: Conjunctiva clear without inflammation or discharge. Ears: Hearing grossly normal. TMs intact, no bulging, erythema, or edema. Nose: Nasal mucosa pink and moist. NTTP maxillary and frontal sinus. Throat: Posterior oropharynx without exudates, erythema, or tonsillar enlargement. Uvula midline. NECK: Supple. Nontender. No lymphadenopathy. CHEST: Mild wheezing throughout. No r/r. No accessory muscle use. Breathing comfortably and in no distress. CV: RRR. Without m/r/g. Pulses intact. Cap refill <2seconds NEURO: Alert. PSYCH: Age appropriate behavior. Triage Information Reviewed: Yes Vital Signs: Vital Signs: Temp Pulse Resp BP Pulse Ox 97.5 F 94 20 114/65 97 10/29/18 14:53 10/29/18 14:53 10/29/18 14:53 10/29/18 14:53 10/29/18 14:53 Vital Signs Reviewed: Yes Respiratory Course/Dx - Course Course Of Treatment: Bronchitis - Differential Dx/Diagnosis Provider Diagnosis: Bronchitis Discharge - Sign-Out/Discharge Documenting (check all that apply): Patient Departure All imaging exams completed and their final reports reviewed: No Studies - Discharge Plan Condition: Stable Disposition: HOME Prescriptions: Albuterol HFA INHALER* [Ventolin HFA Inhaler*] 1 - 2 puff INH Q6H PRN #1 mdi PRN Reason: Cough Azithromycin TAB* [Zithromax TAB (Z-NAOMI) 250 mg #6 tabs] 2 tab PO .TODAY, THEN 1 DAILY #1 naomi Patient Education Materials: Acute Bronchitis (ED) Referrals: Idalia Cai MD [Primary Care Provider] - Additional Instructions: If you develop a fever, shortness of breath, chest pain, new or worsening symptoms - please call your PCP or go to the ED. - Billing Disposition and Condition Condition: STABLE Disposition: Home
== END 2018-10-29 15:10 | disposition home or self-care (01) ==
LOC: UCEAST 14:34
DX: J40 Bronchitis, not specified as acute or chronic (principal); R09.81 Nasal congestion; R51 Headache; F17.210 Nicotine dependence, cigarettes, uncomplicated; Z88.0 Allergy status to penicillin
CPT/HCPCS: 99212; G0463

== ENCOUNTER 2019-08-26 10:46 | Emergency (ER) | payer OTHER ==
--- OUTSIDE RECORDS SUMMARY | 2019-08-26 13:10 | XMS REPORT | Continuity of Care Document ---
:1980 External Reference #:[id number] Author Name Hiram Stinson Address [address] [facility], [place] [address] Care Team Providers Name Role Phone Glen Garcia NP - Nurse Care Team Information Line Walker Practitioner Juliette Paul M.D. - Family Medicine Care Team Information Line Walker [phone] Problems Description No Information Available Social History Type Date Description Comments Sex Unknown ETOH Use Occasionally consumes alcohol Tobacco Use Start: Unknown Light tobacco smoker (10 or fewer cigarettes/day) Recreational Drug Use Denies Drug Use Smoking Status Reviewed: 01/15/19 Light tobacco smoker (10 or fewer cigarettes/day) Allergies, Adverse Reactions, Alerts Active Allergies Reaction Severity Comments Date Penicillin Hives 03/19/2019 Inactive Allergies NKDA 03/19/2019 Medications Active Medications SIG Qnty Indications Ordering Provider Date Gabapentin take 1 tablet by 1tabs I83.892 Hiram Stinson 06/20/2019 600mg mouth 1 hour prior Tablets to your procedure arrival time Compression I83.892 Hiram Stinson 03/19/2019 Stockings Wear Daily For 6 Months 20-30MMHG Thigh High Misc I83.891 Ventolin HFA 2 puffs by mouth 8units Glen Garcia NP 12/09/2015 every 4 hours as 108(90Base) mcg/Act needed for wheezing Aerosol sob or persistant cough Naproxen as needed Unknown 250mg Tablets Immunizations Description No Information Available Vital Signs Date Vital Result Comment 06/20/2019 9:57am Height 64 inches 5'4" Weight 135.00 lb BP Systolic 104 mmHg BP Diastolic 49 mmHg BMI (Body Mass Index) 23.2 kg/m2 Heart Rate 55 /min Respiratory Rate 18 /min 03/19/2019 10:09am Height 64 inches 5'4" Weight 135.00 lb BP Systolic 111 mmHg BP Diastolic 69 mmHg BMI (Body Mass Index) 23.2 kg/m2 Heart Rate 89 /min Respiratory Rate 18 /min Pain Level 6 Results Description No Information Available Procedures Date Code Description Status 03/19/2019 43405 Duplex Scan Extremity Veins Complete Bilateral Completed Medical Devices Description No Information Available Encounters Type Date Location Provider Dx Diagnosis Office Visit 03/19/2019 [facility] Hiram Stinson I83.892 Varicose veins of l 10:00a low extrem with other complications I83.891 Varicose veins of r low extrem with other complications Z68.23 Body mass index (BMI) 23.0-23.9, adult Assessments Date Code Description Provider 06/20/2019 I83.892 Varicose veins of left lower extremity with Hiram Stinson other complicati 06/20/2019 I83.891 Varicose veins of right lower extremity with Hiram Stinson other complicat 06/20/2019 Z68.23 Body mass index (BMI) 23.0-23.9, adult Hiram Stinson 03/19/2019 I83.892 Varicose veins of left lower extremity with Hiram Stinson other complicati 03/19/2019 I83.891 Varicose veins of right lower extremity with Milad, Hiram other complicat 03/19/2019 Z68.23 Body mass index (BMI) 23.0-23.9, adult Hiram Stinson Plan of Treatment Future Appointment(s):10/07/2019 9:30 am - EMILIANO Diane at Vein [id number] 9:00 am - Hiram Stinson at [facility] Cow[place]s0709/10/2019 9:30 am - SIA Petty at Vein Rsrcnx6908/15/2019 9:30 am - EMILIANO Diane at Ve[facility] Ouarfz4208/09/2019 10:00 am - Hiram Stinson at [facility] [place] Functional Status Description No Information Available Mental Status Description No Information Available Referrals Description No Information Available
[2019-08-26 13:23] VITALS: BP 105/68
--- NOTE | 2019-08-26 13:48 | UC ---
Respiratory Complaint HPI - HPI Summary HPI Summary: 39 yo female with a 1 1/2 day hx of cough and wheezing no sore throat or ear ache no cp or sob no v/d , has has some nausea myalgias chills - History of Current Complaint Chief Complaint: UCGeneralIllness Stated Complaint: FLU SYMPTOMS Time Seen by Provider: 08/26/19 13:29 Hx Obtained From: Patient Hx Last Menstrual Period: 08/23/19 Onset/Duration: Sudden Onset, Gradual Onset, Lasting Hours Timing: Constant Severity Initially: Moderate Severity Currently: Moderate Pain Intensity: 6 Pain Scale Used: Adult Non Verbal Character: Cough: Nonproductive Aggravating Factors: Nothing Alleviating Factors: Nothing Associated Signs And Symptoms: Positive: Chills, Wheezing - Allergies/Home Medications Allergies/Adverse Reactions: Allergies Allergy/AdvReac Type Severity Reaction Status Date / Time Penicillins Allergy Rash Verified 08/26/19 13:23 PMH/Surg Hx/FS Hx/Imm Hx Previously Healthy: Yes Respiratory History: Bronchitis - Surgical History Surgical History: Yes Surgery Procedure, Year, and Place: 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) - Family History Known Family History: Positive: Cardiac Disease, Hypertension Negative: Diabetes, Renal Disease, Respiratory Disease, Seizure Disorder Family History: cancer, but pt doens't recall what type - Social History Alcohol Use: Occasionally Substance Use Type: None Smoking Status (MU): Current Every Day Smoker Type: Cigarettes Amount Used/How Often: less than 1/2 pack day Length of Time of Smoking/Using Tobacco: 18 Years Have You Smoked in the Last Year: Yes Household Exposure Type: Cigarettes - Immunization History Most Recent Influenza Vaccination: Not UTD Most Recent Tetanus Shot: unk offering post Most Recent Pneumonia Vaccination: never Review of Systems All Other Systems Reviewed And Are Negative: Yes Constitutional: Positive: Chills, Fatigue Respiratory: Positive: Cough, Other - wheezing Cardiovascular: Positive: Negative Gastrointestinal: Positive: Negative Genitourinary: Positive: Negative Motor: Positive: Negative Neurovascular: Positive: Negative Musculoskeletal: Positive: Myalgia Neurological: Positive: Negative Psychological: Positive: Negative Physical Exam Triage Information Reviewed: Yes Appearance: Well-Appearing, No Pain Distress, Well-Nourished Vital Signs: Initial Vital Signs Temp 98 F 08/26/19 13:20 Pulse 69 08/26/19 13:20 Resp 16 08/26/19 13:20 BP 105/68 11/04/19 13:20 Pulse Ox 100 08/26/19 13:20 Vital Signs Reviewed: Yes Eyes: Positive: Conjunctiva Clear ENT: Positive: Uvula midline. Negative: Hearing grossly normal - [place]. bilat hearing aides, Nasal congestion, Nasal drainage, Trismus, Muffled voice, Hoarse voice Dental Exam: Normal Neck: Positive: Supple, Nontender, No Lymphadenopathy Respiratory: Positive: No respiratory distress, No accessory muscle use, Wheezing Cardiovascular: Positive: RRR, No Murmur Abdomen Description: Positive: Nontender Musculoskeletal: Positive: ROM Intact, No Edema Neurological: Positive: Alert Psychological Exam: Normal Skin Exam: Normal Respiratory Course/Dx - Course Course Of Treatment: influenza (-) - Differential Dx/Diagnosis Provider Diagnosis: Viral bronchitis Discharge ED - Sign-Out/Discharge Documenting (check all that apply): Patient Departure All imaging exams completed and their final reports reviewed: No Studies - Discharge Plan Condition: Stable Disposition: HOME Patient Education Materials: Acute Bronchitis (ED), How to Use a Metered-Dose Inhaler and a Spacer (ED) Forms: *Work Release Referrals: Idalia Cai MD [Primary Care Provider] - If Needed - Billing Disposition and Condition Condition: STABLE Disposition: Home
[2019-08-26 13:50] LABS: Influenza A Molecular NEGATIVE (Negative); Influenza B Molecular NEGATIVE (Negative)
[2019-08-26] MEDS ORDERED: predniSONE TAB* 20 MG PO ONE (14:05)
[2019-08-26] MEDS ORDERED: Albuterol HFA INHALER* 8 gm MDI INH ONE (14:05)
== END 2019-08-26 14:22 | disposition home or self-care (01) ==
LOC: UCEAST 10:46
DX: J20.8 Acute bronchitis due to other specified organisms (principal); F17.210 Nicotine dependence, cigarettes, uncomplicated; M79.10 Myalgia, unspecified site; R53.83 Other fatigue; Z88.0 Allergy status to penicillin; R11.0 Nausea
CPT/HCPCS: 99212; A9270-GY; G0463; J7512

== ENCOUNTER 2019-09-26 12:49 | Emergency (ER) | payer OTHER ==
--- NOTE | 2019-09-26 12:53 | UC ---
Respiratory Complaint HPI - History of Current Complaint Stated Complaint: CONGESTION COUGH HEADACHE Time Seen by Provider: 09/26/19 12:53 Hx Last Menstrual Period: 08/23/19 - Allergies/Home Medications Allergies/Adverse Reactions: Allergies Allergy/AdvReac Type Severity Reaction Status Date / Time Penicillins Allergy Rash Verified 08/26/19 13:23 PMH/Surg Hx/FS Hx/Imm Hx - Additional Past Medical History Additional PMH: None - Surgical History Surgical History: Yes Surgery Procedure, Year, and Place: open heart surgery as (VSD REPAIR) - Family History Known Family History: Positive: Cardiac Disease, Hypertension Negative: Diabetes, Renal Disease, Respiratory Disease, Seizure Disorder Family History: cancer, but pt doens't recall what type - Social History Lives: With Family Alcohol Use: Occasionally Substance Use Type: None Smoking Status (MU): Current Every Day Smoker Type: Cigarettes Amount Used/How Often: less than 1/2 pack day Length of Time of Smoking/Using Tobacco: 18 Years Have You Smoked in the Last Year: Yes Household Exposure Type: Cigarettes - Immunization History Most Recent Influenza Vaccination: Not UTD Most Recent Tetanus Shot: unk offering post Most Recent Pneumonia Vaccination: never Review of Systems All Other Systems Reviewed And Are Negative: No Constitutional: Positive: Negative Skin: Positive: Negative Eyes: Positive: Negative ENT: Positive: Negative Respiratory: Positive: Cough Cardiovascular: Positive: Negative Gastrointestinal: Positive: Negative Neurological: Positive: Negative Psychological: Positive: Negative Physical Exam - Summary Physical Exam Summary: GENERAL: NAD. WDWN. No pain distress. SKIN: No rashes, sores, lesions, or open wounds. HEENT: Head: AT/NC Eyes: EOM intact. Conjunctiva clear without inflammation or discharge. Ears: Hearing grossly normal. TMs intact, no bulging, erythema, or edema. Nose: Nasal mucosa pink and moist. NTTP maxillary and frontal sinus. Throat: Posterior oropharynx without exudates, erythema, or tonsillar enlargement. Uvula midline. NECK: Supple. Nontender. No lymphadenopathy. CHEST: CTAB. No accessory muscle use. Breathing comfortably and in no distress. CV: RRR. Pulses intact. Cap refill <2seconds NEURO: Alert. PSYCH: Age appropriate behavior. Triage Information Reviewed: Yes Vital Signs Reviewed: Yes Discharge ED - Sign-Out/Discharge Documenting (check all that apply): Patient Departure All imaging exams completed and their final reports reviewed: No Studies - Discharge Plan Condition: Stable Disposition: HOME Referrals: Idalia Cai MD [Primary Care Provider] - - Billing Disposition and Condition Condition: STABLE Disposition: Home
--- OUTSIDE RECORDS SUMMARY | 2019-09-26 12:57 | XMS REPORT | Continuity of Care Document ---
:1980 External Reference #:[id number] Author Name EMILIANO Diane (transmitted by agent of provider Carla Gilliam) Address [address] [facility] [place] [address] [place] [address] Care Team Providers Name Role Phone Glen Garcia NP - Nurse Care Team Information Name Plate Stamper Practitioner Juliette Paul M.D. - Family Medicine Care Team Information Name Plate Stamper Problems Description No Information Available Social History [...] Available Vital Signs Date Vital Result Comment 08/15/2019 9:27am Height 64 inches 5'4" Weight 135.00 lb BP Systolic 123 mmHg BP Diastolic 67 mmHg BMI (Body Mass Index) 23.2 kg/m2 Heart Rate 85 /min Respiratory Rate 18 /min Pain Level 0 out of 10 06/20/2019 9:57am Height 64 inches 5'4" Weight 135.00 lb BP Systolic 104 mmHg BP Diastolic 49 mmHg BMI (Body Mass Index) 23.2 kg/m2 Heart Rate 55 /min Respiratory Rate 18 /min Results Description No Information Available Procedures Date Code Description Status 08/15/2019 97615 Duplex Scan Extremity Veins, Unilateral Or Limited Study Completed 08/09/2019 47028 Endovenus Therapy Radiofreq Completed 03/19/2019 25642 Duplex Scan Extremity Veins Complete Bilateral Completed Medical Devices Description No Information Available Encounters Type Date Location Provider Dx Diagnosis Office Visit 08/15/2019 [facility] EMILIANO Diane I83.892 Varicose veins of l 9:30a low extrem with other complications Z68.23 Body mass index (BMI) 23.0-23.9, adult Office Visit 06/20/2019 10:00a [facility] Milad, I83.892 Varicose veins of l Hiram low extrem with other complications I83.891 Varicose veins of r low extrem with other complications Z68.23 Body mass index (BMI) 23.0-23.9, adult Office Visit 03/19/2019 10:00a [facility] Milad, I83.892 Varicose veins of l Hiram low extrem with other complications I83.891 Varicose veins of r low extrem with other complications Z68.23 Body mass index (BMI) 23.0-23.9, adult Assessments Date Code Description Provider 08/15/2019 I83.892 Varicose veins of left lower extremity with EMILIANO Diane other complicati 08/15/2019 Z68.23 Body mass index (BMI) 23.0-23.9, adult EMILIANO Diane 08/09/2019 I83.892 Varicose veins of left lower extremity with Hiram Stinson other complicati 06/20/2019 I83.892 Varicose veins of left lower extremity with StinsonHiram other complicati 06/20/2019 I83.891 Varicose veins of right lower extremity with Hiram Stinson other complicat 06/20/2019 Z68.23 Body mass index (BMI) 23.0-23.9, adult Hiram Stinson 03/19/2019 I83.892 Varicose veins of left lower extremity with Milad Hiram other complicati 03/19/2019 I83.891 Varicose veins of right lower extremity with Milad Hiram other complicat 03/19/2019 Z68.23 Body mass index (BMI) 23.0-23.9, adult Hiram Stinson Plan of Treatment Future Appointment(s):11/07/2019 1:30 pm - EMILIANO Diane at Vein [id number]/10 10:00 am - EMILIANO Diane at Vein Ffnggu2110/04/2019 8:00 am - Hiram Stinson at Vein Kjsxvm3609/10/2019 9:30 am - SIA Petty at [facility] Center Functional Status Description No Information Available Mental Status Description No Information Available Referrals Refer to Dr Reason for Referral Status Appt Date Hiram Stinson M.D. BILATERAL LEG SURGERY Created [address] [facility] [place] [address] [place] [address] [phone]
--- OUTSIDE RECORDS SUMMARY | 2019-09-26 12:57 | XMS REPORT | Continuity of Care Document ---
:1980 External Reference #:[id number] Author Name SIA Petty (transmitted by agent of provider Kellen Crabtree) Address [address] [facility] [place] [address] Care Team Providers Name Role Phone Glen Garcia NP - Nurse Care Team Information Waste Handling Technician [phone] Practitioner Juliette Paul M.D. - Family Medicine Care Team Information Waste Handling Technician Problems Description No Information Available Social History [...] Naproxen as needed Unknown 250mg Tablets Immunizations CPT Code Status Date Vaccine Lot # [id number] Refused 09/10/2019 Influenza Vaccine 93851-317-57 Vital Signs Date Vital Result Comment 09/10/2019 9:32am Height 64 inches 5'4" Weight 135.00 lb BP Systolic 104 mmHg BP Diastolic 65 mmHg BMI (Body Mass Index) 23.2 kg/m2 Heart Rate 76 /min Pain Level 0 out of 10 08/15/2019 9:27am Height 64 inches 5'4" Weight 135.00 lb BP Systolic 123 mmHg BP Diastolic 67 mmHg BMI (Body Mass Index) 23.2 kg/m2 Heart Rate 85 /min Respiratory Rate 18 /min Pain Level 0 out of 10 Results Description No Information Available Procedures Date Code Description Status 09/10/2019 63657 Duplex Scan Extremity Veins, Unilateral Or Limited Study Completed 08/15/2019 13667 Duplex Scan Extremity Veins, Unilateral Or Limited Study Completed 08/09/2019 73731 Endovenus Therapy Radiofreq Completed 03/19/2019 31545 Duplex Scan Extremity Veins Complete Bilateral Completed Medical Devices Description No Information Available Encounters Type Date Location Provider Dx Diagnosis Office Visit 08/15/2019 [facility] I83.892 Varicose veins of l 9:30a low extrem with other complications Z68.23 Body mass index (BMI) 23.0-23.9, adult Office Visit 06/20/2019 10:00a [facility], I83.892 Varicose veins of l Hiram low extrem with other complications I83.891 Varicose veins of r low extrem with other complications Z68.23 Body mass index (BMI) 23.0-23.9, adult Office Visit 03/19/2019 10:00a [facility], I83.892 Varicose veins of l Hiram low extrem with other complications I83.891 Varicose veins of r low extrem with other complications Z68.23 Body mass index (BMI) 23.0-23.9, adult Assessments Date Code Description Provider 09/10/2019 I83.892 Varicose veins of left lower extremity with SIA Petty other complicati 09/10/2019 Z68.23 Body mass index (BMI) 23.0-23.9, adult SIA Petty 08/15/2019 I83.892 Varicose veins of left lower extremity with EMILIANO Diane other complicati 08/15/2019 Z68.23 Body mass index (BMI) 23.0-23.9, adult EMILIANO Diane 08/09/2019 I83.892 Varicose veins of left lower extremity with Stinson, Hiram other complicati 06/20/2019 I83.892 Varicose veins of left lower extremity with Stinson, Hiram other complicati 06/20/2019 I83.891 Varicose veins of right lower extremity with Stinson, Hiram other complicat 06/20/2019 Z68.23 Body mass index (BMI) 23.0-23.9, adult Hiram [facility] 03/19/2019 I83.892 Varicose veins of left lower extremity with Stinson, Hiram other complicati 03/19/2019 I83.891 Varicose veins of right lower extremity with Stinson, Hiram other complicat 03/19/2019 Z68.23 Body mass index (BMI) 23.0-23.9, adult Hiram [facility]inson Plan of Treatment Future Appointment(s):11/07/2019 1:30 pm - EMILIAN[facility] Diane at Vein Zodzok1910/10 10:00 am - EMILIANO Diane at Vein Ortbos4710/04/2019 8:00 am - [facility] Functional Status Description No Information Available Mental Status Description No Information Available Referrals Refer to Dr Reason for Referral Status Appt Date Hiram [facility]inson M.D. BILATERAL LEG SURGERY Created [address] [facility] [place] [address] [place] [address] [phone]
--- OUTSIDE RECORDS SUMMARY | 2019-09-26 12:57 | XMS REPORT | Continuity of Care Document ---
:1980 External Reference #:[id number] Author Name EMILIANO Diane Address [address] [facility] [place] [address] Care Team Providers Name Role Phone Glen Garcia NP - Nurse Care Team Information Hoop Expander [phone] Practitioner Juliette Paul M.D. - Family Medicine Care Team Information Hoop Expander [phone] Problems Description No Information Available Social History [...] Available Procedures Date Code Description Status 08/15/2019 64485 Duplex Scan Extremity Veins, Unilateral Or Limited Study Completed 08/09/2019 34726 Endovenus Therapy Radiofreq Completed 03/19/2019 59496 Duplex Scan Extremity Veins Complete Bilateral Completed [...] 1:30 pm - EMILIANO Diane at Vein Vphyuk2010/10 10:00 am - EMILIANO Diane at Vein Buosaj0710/04/2019 8:00 am - Hiram [facility] at Vein Fnbnzt8609/10/2019 9:30 am - SIA Petty at Vein Center Functional Status Description No Information Available Mental Status Description No Information Available Referrals Refer to Reason for Referral Status Appt Date Hiram Stinson M.D. BILATERAL LEG SURGERY Created [address] [facility] [place] [address] [phone]
--- OUTSIDE RECORDS SUMMARY | 2019-09-26 12:57 | XMS REPORT | Continuity of Care Document ---
:1980 External Reference #:[id number] Author Name SIA Petty Address [address] [facility] [address] Care Team Providers Name Role Phone Glen Garcia NP - Nurse Care Team Information Joint Filler Practitioner Juliette Paul M.D. - Family Medicine Care Team Information Joint Filler Problems Active Problems Provider Date Body mass index 20-24 - normal SIA Petty Onset: 09/10/2019 Varicose veins of lower extremity SIA Petty Onset: 09/10/2019 Social History Type Date Description Comments Sex [...] CPT Code Status Date Vaccine Lot # [id number] Refused 09/10/2019 Influenza Vaccine 89067-345-33 Vital Signs Date Vital Result Comment 09/10/2019 [...] Available Procedures Date Code Description Status 09/10/2019 97234 Duplex Scan Extremity Veins, Unilateral Or Limited Study Completed 08/15/2019 87113 Duplex Scan Extremity Veins, Unilateral Or Limited Study Completed 08/09/2019 75601 Endovenus Therapy Radiofreq Completed 03/19/2019 57629 Duplex Scan Extremity Veins Complete Bilateral Completed Medical Devices Description No Information Available Encounters Type Date Location Provider Dx Diagnosis Office Visit 09/10/2019 [facility] [place], I83.892 Varicose veins of l 9:30a [place] low extrem with other complications Z68.23 Body mass index (BMI) 23.0-23.9, adult Office Visit 08/15/2019 9:30a [facility] 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 BILATERAL LEG SURGERY Created [address] [facility] [place] [address] [phone]
--- OUTSIDE RECORDS SUMMARY | 2019-09-26 12:57 | XMS REPORT | Continuity of Care Document ---
:1980 External Reference #:[id number] Author Name SIA Petty (transmitted by agent of provider Carla Gilliam) Address [address] [facility] [place] [address] Care Team Providers Name Role Phone Glen Garcia NP - Nurse Care Team Information Transport Engineer Practitioner Juliette Paul M.D. - Family Medicine Care Team Information Transport Engineer Problems Active Problems Provider Date Body mass [...] CPT Code Status Date Vaccine Lot # [id number] Refused 09/10/2019 Influenza Vaccine 71303-581-94 Vital Signs Date Vital Result Comment 09/10/2019 [...] Available Procedures Date Code Description Status 09/10/2019 79285 Duplex Scan Extremity Veins, Unilateral Or Limited Study Completed 08/15/2019 79117 Duplex Scan Extremity Veins, Unilateral Or Limited Study Completed 08/09/2019 73732 Endovenus Therapy Radiofreq Completed 03/19/2019 29401 Duplex Scan Extremity Veins Complete Bilateral Completed Medical Devices Description No Information Available Encounters Type Date Location Provider Dx Diagnosis Office Visit 09/10/2019 [facility] [place], I83.892 Varicose veins of l 9:30a [place] low extrem with other complications Z68.23 Body mass index (BMI) 23.0-23.9, adult Office Visit 08/15/2019 9:30a [facility], 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 BILATERAL LEG SURGERY Created [address] [facility] [place] [facility] [place] [address] [phone]
[2019-09-26 13:07] VITALS: BP 104/66
--- NOTE | 2019-09-26 13:29 | UC ---
Throat Pain/Nasal Kevin HPI - HPI Summary HPI Summary: 39-year-old woman comes in with a chief complaint of several days of upper respiratory tract infection symptoms. She reports cough chest congestion and green rhinorrhea and sputum. No complaint of nausea vomiting. No history of asthma. - History of Current Complaint Chief Complaint: UCRespiratory Stated Complaint: CONGESTION COUGH HEADACHE Time Seen by Provider: 09/26/19 12:53 Hx Last Menstrual Period: 09/21/19 Pain Intensity: 6 - Allergies/Home Medications Allergies/Adverse Reactions: Allergies Allergy/AdvReac Type Severity Reaction Status Date / Time Penicillins Allergy Rash Verified 09/26/19 13:07 PMH/Surg Hx/FS Hx/Imm Hx Previously Healthy: Yes - Surgical History Surgical History: Yes Surgery Procedure, Year, and Place: 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) - Family History Known Family History: Positive: Cardiac Disease, Hypertension Negative: Diabetes, Renal Disease, Respiratory Disease, Seizure Disorder Family History: cancer, but pt doens't recall what type - Social History Alcohol Use: Occasionally Substance Use Type: None Smoking Status (MU): Former Smoker Type: Cigarettes Amount Used/How Often: less than 1/2 pack day Length of Time of Smoking/Using Tobacco: 18 Years Have You Smoked in the Last Year: Yes Household Exposure Type: Cigarettes - Immunization History Most Recent Influenza Vaccination: Not UTD Most Recent Tetanus Shot: unk offering post Most Recent Pneumonia Vaccination: never Review of Systems All Other Systems Reviewed And Are Negative: Yes Constitutional: Positive: Other - SEE HPI Skin: Positive: Negative Eyes: Positive: Negative ENT: Positive: Sore Throat, Nasal Discharge, Sinus Congestion Respiratory: Positive: Cough, Other - SEE HPI Cardiovascular: Positive: Negative Gastrointestinal: Positive: Negative Motor: Positive: Negative Neurovascular: Positive: Negative Musculoskeletal: Positive: Negative Neurological: Positive: Negative Psychological: Positive: Negative Is Patient Immunocompromised?: No Physical Exam Triage Information Reviewed: Yes Appearance: No Pain Distress, Well-Nourished, Ill-Appearing - MILD Vital Signs: Initial Vital Signs Temp 98.6 F 09/26/19 13:03 Pulse 79 09/26/19 13:03 Resp 18 09/26/19 13:03 BP 104/66 09/26/19 13:03 Pulse Ox 99 09/26/19 13:03 Vital Signs Reviewed: Yes Eye Exam: Normal Eyes: Positive: Conjunctiva Clear ENT: Positive: Pharyngeal erythema, Nasal congestion, Nasal drainage, TMs normal Neck: Positive: Supple Respiratory: Positive: No respiratory distress, No accessory muscle use, Rhonchi Cardiovascular: Positive: RRR Musculoskeletal: Positive: Strength Intact, ROM Intact Neurological: Positive: Alert, Muscle Tone Normal Psychological: Positive: Normal Response To Family, Age Appropriate Behavior Skin Exam: Normal Throat Pain/Nasal Course/Dx - Course Course Of Treatment: DISCUSSED VIRAL VERSES BACTERIAL INFECTIONS AND THE ROLE OF ANTIBIOTICS. THE PATIENT PREFERS TO BE ON ANTIBIOTICS AT THIS TIME. - Differential Dx/Diagnosis Provider Diagnosis: Bronchitis Discharge ED - Sign-Out/Discharge Documenting (check all that apply): Patient Departure All imaging exams completed and their final reports reviewed: No Studies - Discharge Plan Condition: Stable Disposition: HOME Patient Education Materials: Acute Bronchitis (ED) Forms: *Work Release Referrals: Idalia Cai MD [Primary Care Provider] - Additional Instructions: FOLLOW UP WITH YOUR DOCTOR IF NOT COMPLETELY IMPROVED. GET REEVALUATED SOONER IF NOT IMPROVED OR WORSE OR ANY QUESTIONS OR CONCERNS. - Billing Disposition and Condition Condition: STABLE Disposition: Home
== END 2019-09-26 13:44 | disposition home or self-care (01) ==
LOC: UCEAST 12:49
DX: J40 Bronchitis, not specified as acute or chronic (principal); J02.9 Acute pharyngitis, unspecified; R09.89 Other specified symptoms and signs involving the circulatory and respiratory systems; R09.81 Nasal congestion; Z88.0 Allergy status to penicillin; Z87.891 Personal history of nicotine dependence
CPT/HCPCS: 99211; G0463